=== PATIENT | male | born 1970 | race Asian ===

== ENCOUNTER 2021-02-03 13:23 | Outpatient (CLI) | payer OTHER ==
--- NOTE | 2021-02-03 16:21 | MRI Report ---
PROCEDURE: Shoulder LT W/O INDICATIONS: PAIN IN RIGHT SHOULDER TECHNIQUE: Noncontrast oblique coronal T2 fast spin echo with fat saturation, oblique sagittal T1 spin echo and T2 fast spin echo with fat saturation, axial T1 spin echo and T2 fast spin echo with fat saturation t hrough the shoulder. COMPARISON: None. FINDINGS: Rotator cuff: Mild supraspinatus tendinopathy with partial thickness articular sided tear. Mild infraspinatus tendi nopathy. Teres minor appears intact. Subscapularis tendon appears intact. No atrophy of the rotator c uff muscles. Bones and bursae: No bone marrow contusions or fractures. Mild glenohumeral and moderate acromioclavicular joint degeneration. The acromion demonstrates conventional anatomy, without an os acromiale. No subacromial/subdeltoid bursal fluid is present. Capsule and soft tissues: Labrum: Ill-defined appearance of the anterior labrum, with adjacent glenoid rim spurring and scleros is. There is also mild ill-defined fraying of the posterior segment. Ligaments/capsule: Superior and inferior coracohumeral ligament appear intact. Long head biceps tendon: Long head biceps tendon appears intact. Rotator interval: Normal signal intensity. Coracohumeral ligament: Not well seen, raising possibility of sprain or rupture IMPRESSION: Mild partial thickness articular sided rotator cuff tear as above. Chronic appearing tear of the anterior labrum and probable age appropriate fraying of the posterior s egment. Reviewed by: Brad Jaeger MD on 02/03/2021 4:20 PM PDT Approved by: Brad Jaeger MD on 02/03/2021 4:20 PM PDT Station ID: [id number]
== END 2021-02-03 13:24 | disposition home or self-care (01) ==
LOC: DI 13:23
PROVIDERS: ATTEND Student in an Organized Health Care Education/Training Program
DX: M75.112 Incomplete rotator cuff tear or rupture of left shoulder, not specified as traumatic (principal); S43.492A Other sprain of left shoulder joint, initial encounter

== ENCOUNTER 2022-07-08 15:19 | Outpatient (CLI) | payer OTHER | END 2022-07-08 15:20 | disposition critical access hospital (66) | LOC: EMS 15:19 | DX: R07.9 Chest pain, unspecified (principal); R42 Dizziness and giddiness; R11.0 Nausea; R00.0 Tachycardia, unspecified | CPT/HCPCS: A0425; A0429 ==

== ENCOUNTER 2023-01-10 10:47 | Outpatient (CLI) | payer OTHER ==
--- NOTE | 2023-01-10 11:11 | CARDIAC PROCEDURE NOTE ---
Stress Test Report Service Date: 01/10/23 Service Time: 11:00 Ordering Provider: Jose R Ramos PA-C Indication for Test: Assess episodic atypical chest discomfort. Significant Medical History: Alli is referred for an ETT today to assess episodic anterior chest pain that he describes as sharp, retrosternal and pleuritic in nature; it is worse with movement (for example twisting his thorax around), inspiration and can be elicited by deep palpation over his chest wall. 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 He has had intermittent chest discomfort since that time. This has become more of an issue in recent months following a more severe episode that occurred in July of this year prompting a visit to the [facility] Emergency Department, where EKG was nonischemic and troponin negative. Of note, his potassium level was quite low (2.9) without a clear ex planation and he has tried to replete the levels with enhancement of his diet in potassium-rich foods. He has not had a repeat K+ level, however. In recent times he has tried to not to pay so much attention to the discomfort and feels like it is less vexing now. He resumed recreational jogging and has not had any exertionally-triggered chest pain. He is occasionally aware of palpitations but denies undue shortness of breath nor reduction in his exertional tolerance. As detailed below he was previously treated with antihypertensive medication, but that was discontinued many years ago due to poor tolerance and blood pressures came down with weight loss. He was recently started on 40 mg rosuvastatin daily, which he has been taking with some concern for lower extremity leg muscle cramping. Cardiac Risk Factors: Positive for history of hypertension (with prior medication treatment that was poorly tolerated, resulting in aggressive efforts at weight loss through intermittent fasting; wt. decreased by 25 lbs with BP decreasing from 160/100 range to 130's/80's), positive for hyperlipidemia; negative for diabetes, prior smoking history or known family history of CAD. Type of Stress Test: Exercise Treadmill Test (ETT) Procedure: -Exercise Treadmill Test- After signing informed consent, the patient performed treadmill exercise using a Blayne protocol. The patient exercised for 8 minutes 52 seconds and achieved a peak heart rate of 160 (95 percent predicted maximum heart rate for age), and an estimated workload of 10.2 METS. The test was terminated due to fatigue/shortness of breath. Resting heart rate: 70 Peak heart rate: 160 Normal response to exercise. Resting BP: 130/88 Peak BP: 178/80 Normal response of sytolic and diastolic BPs to exercise. Rhythm during exercise: Sinus rhythm throughout without ventricular ectopy. Symptoms: He reported dyspnea and pounding heart beats but denied any chest discomfort whatsoever. EKG at rest showed normal sinus rhythm with some ST segments as much as 0.5 mm elevated, likely due to early repolarization and interpretable from ischemia standpoint. EKG at peak stress showed J-point depression with upsloping ST segments, borderline but likely NOT reaching diagnostic EKG criteria for ischemia. In Recovery heart rate rapidly/normally decreased with slower return of blood pressures towards baseline levels. No imaging was ordered with this stress test. I, Federico Soliman MD, was present throughout this treadmill stress study and supervised it in its entirety. Summary: 1) Exercise tolerance minimally below average for age as evidenced by MILLI of 11%. 2) Normal resting EKG. 3) Adequate level of exercise was achieved on this treadmill stress test. 4) Normal BP response to exercise. 5) Borderline ischemic changes by EKG criteria were seen at peak stress. The computer analysis suggests that mild ST depression was present at the diagnostic time of 60ms past the J-point but the overall pattern does not suggest true ischemia. It is possible that motion artifact and/or persistent hypokalemia may have contributed. 6) No imaging was ordered with this test. Conclusions and Recommendations: 1) Overall this is a reassuring study, given near average exercise time for age and no occurrence of his nonexertional chest discomfort (which seems highly likely due to longstanding chest wall abnormalities). Although the EKG response was borderline I would not repeat the study with imaging, unless the discomfort evolves to exertional in nature. 2) I am recommending continued attention to blood pressure surveillance, maintenance of ideal body weight and continue use of rosuvastatin at a dose that is not implicated in causing leg cramps. For many patients taking the same dose of rosuvastatin every other day can lead to reduction in musculoskeletal side effects with no significant change in lipid panel results versus daily dosing, so would recommend this change. 3) He should also have a full chemistry panel to assess electrolytes and transaminases. If potassium remains significantly reduced he should have a course of replacement therapy and be followed with serial levels (after, for example, a month of treatment, and again several weeks later off treatment). If he does not return to mid normal with replacement OR again becomes hypokalemic after treatment is concluded this should be further investigated, potentially by a Dairy Inspector.
== END 2023-01-10 10:48 | disposition home or self-care (01) ==
LOC: DI 10:47
PROVIDERS: ATTEND Student in an Organized Health Care Education/Training Program
DX: I10 Essential (primary) hypertension (principal); R07.9 Chest pain, unspecified; E78.5 Hyperlipidemia, unspecified
CPT/HCPCS: 93017